=== PATIENT | male | born 1975 | race Caucasian/White ===

== ENCOUNTER 2019-07-19 19:36 | Emergency (ER) | payer MEDICAID ==
[~2019-07-19] VITALS: Ht 177.8 cm; Wt 90.9 kg
[2019-07-19] MEDS ORDERED: normal saline 1000ML IV soln IVB ONE (20:35)
[2019-07-19 21:16] LABS: ALANINE AMINOTRANSFERASE 185 U/L (12-78); ALBUMIN 4.2 G/DL (3.4-5.0); ALBUMIN/GLOBULIN RATIO 1.2 (1.1-1.5); ALKALINE PHOSPHATASE 97 IU/L (46-116); ANION GAP 9 (8-16); ASPARTATE AMINO TRANSFERASE 181 U/L (10-37); BILIRUBIN,TOTAL 0.6 MG/DL (0.1-1.0); BLOOD UREA NITROGEN 10 MG/DL (7-18); BUN/CREATININE RATIO 10.2 (5.4-32.0); CALCIUM 8.2 MG/DL (8.5-10.1); CHLORIDE 98 MMOL/L (99-107); CREATININE 0.98 MG/DL (0.60-1.10); ETHANOL 0.274 GM/DL (0.0-0.010); GLUCOSE 186 MG/DL (70-104); POTASSIUM 3.2 MMOL/L (3.5-5.1); SODIUM 137 MMOL/L (135-145); TOTAL CARBON DIOXIDE 29.9 MMOL/L (24-32); TOTAL PROTEIN 7.7 G/DL (6.4-8.2); eGFR 83 ML/MIN
[2019-07-19 21:29] LABS: BASOPHILS % (AUTO) 0.2 % (0-1); EOSINOPHILS % (AUTO) 0.3 % (0-6); HEMATOCRIT 44.2 % (42.0-52.0); HEMOGLOBIN 15.4 g/dl (14.0-17.9); LYMPHOCYTES # (AUTO) 0.5 X10'3 (1.1-4.8); MEAN CORPUSCULAR HEMOGLOBIN 34.2 PG (27.0-31.0); MEAN CORPUSCULAR HGB CONC 34.9 g/dL (33.0-36.5); MEAN CORPUSCULAR VOLUME 97.9 FL (78-98); MEAN PLATELET VOLUME 6.8 FL (7.4-10.4); MONOCYTES # (AUTO) 0.3 X10'3 (0-0.9); MONOCYTES % (AUTO) 8.5 % (2-12); NEUTROPHILS # (AUTO) 2.3 X10'3 (1.8-7.7); PLATELET COUNT 146 X10'3 (140-440); RED BLOOD COUNT 4.51 X10'6 (4.70-6.10); RED CELL DISTRIBUTION WIDTH 13.1 % (11.5-14.5); WHITE BLOOD COUNT 3.1 X10'3 (4.5-11.0)
[2019-07-19 22:16] VITALS: BP 155/104
== END 2019-07-19 22:19 | disposition home or self-care (01) ==
LOC: ER 19:37
DX: F10.129 Alcohol abuse with intoxication, unspecified (principal); F41.9 Anxiety disorder, unspecified; G47.9 Sleep disorder, unspecified; Z87.891 Personal history of nicotine dependence; Z59.0 Homelessness; Z79.899 Other long term (current) drug therapy; Y90.0 Blood alcohol level of less than 20 mg/100 ml
CPT/HCPCS: 36415; 80053; 80320; 84484; 85025; 93005; 99284; J7030

== ENCOUNTER 2019-07-22 04:28 | Inpatient (IN) | payer MEDICAID ==
[~2019-07-22] VITALS: Ht 177.8 cm; Wt 90.9 kg
[2019-07-22] MEDS ORDERED: dextrose 5%-1/2 normal saline 1,000 ML IV ONE (04:33)
[2019-07-22] MEDS ORDERED: thiamine inj. 100 MG in normal saline 100ml IV soln 100 ML IV ONE ×2 (04:35→06:25)
[2019-07-22] MEDS: LORazepam 2 mg/ml vial IV PRN ×8 (04:54→21:25)
[2019-07-22 05:09] LABS: BASOPHILS % (AUTO) 0.4 % (0-1); EOSINOPHILS % (AUTO) 0.3 % (0-6); HEMATOCRIT 44.2 % (42.0-52.0); HEMOGLOBIN 15.7 g/dl (14.0-17.9); LYMPHOCYTES # (AUTO) 0.7 X10'3 (1.1-4.8); LYMPHOCYTES % (AUTO) 16.4 % (21-51); MEAN CORPUSCULAR HEMOGLOBIN 34.6 PG (27.0-31.0); MEAN CORPUSCULAR HGB CONC 35.5 g/dL (33.0-36.5); MEAN CORPUSCULAR VOLUME 97.5 FL (78-98); MEAN PLATELET VOLUME 7.1 FL (7.4-10.4); MONOCYTES # (AUTO) 0.3 X10'3 (0-0.9); MONOCYTES % (AUTO) 7.7 % (2-12); NEUTROPHILS # (AUTO) 3.2 X10'3 (1.8-7.7); NEUTROPHILS % (AUTO) 75.2 % (42-75); PLATELET COUNT 126 X10'3 (140-440); RED BLOOD COUNT 4.53 X10'6 (4.70-6.10); RED CELL DISTRIBUTION WIDTH 12.8 % (11.5-14.5); WHITE BLOOD COUNT 4.2 X10'3 (4.5-11.0)
[2019-07-22] MEDS ORDERED: ondansetron/PF 4mg/2ml inj IV ONE (05:10)
[2019-07-22 05:20] LABS: ALANINE AMINOTRANSFERASE 262 U/L (12-78); ALBUMIN 4.5 G/DL (3.4-5.0); ALBUMIN/GLOBULIN RATIO 1.3 (1.1-1.5); ALKALINE PHOSPHATASE 103 IU/L (46-116); ANION GAP 16 (8-16); ASPARTATE AMINO TRANSFERASE 312 U/L (10-37); BILIRUBIN,TOTAL 0.7 MG/DL (0.1-1.0); BLOOD UREA NITROGEN 6 MG/DL (7-18); BUN/CREATININE RATIO 8.1 (5.4-32.0); CALCIUM 8.7 MG/DL (8.5-10.1); CHLORIDE 99 MMOL/L (99-107); CREATININE 0.74 MG/DL (0.60-1.10); GLUCOSE 98 MG/DL (70-104); POTASSIUM 3.2 MMOL/L (3.5-5.1); SODIUM 140 MMOL/L (135-145); TOTAL CARBON DIOXIDE 25.4 MMOL/L (24-32); TOTAL PROTEIN 7.9 G/DL (6.4-8.2); eGFR > 90 ML/MIN
[2019-07-22 05:31] LABS: MAGNESIUM 1.9 MG/DL (1.5-2.4); PHOSPHORUS 2.8 MG/DL (2.3-4.5)
[2019-07-22 05:38] LABS: ETHANOL 0.314 GM/DL (0.0-0.010)
[2019-07-22] MEDS ORDERED: NO HOME MEDS (06:05)
[2019-07-22] MEDS ORDERED: acetaminophen 325mg tablet PO PRN (06:20)
[2019-07-22] MEDS ORDERED: magnesium hydroxide 30ml (MOM) UD suspension PO PRN (06:20)
[2019-07-22] MEDS ORDERED: mag hydrox/Alum hydrox/simeth 30ml oral suspension PO PRN (06:20)
[2019-07-22] MEDS ORDERED: ondansetron/PF 4mg/2ml inj IV PRN (06:20)
[2019-07-22] MEDS ORDERED: LORazepam 2 mg/ml vial IV PRN (06:25)
--- NOTE | 2019-07-22 09:30 | NUR ---
Patient in room [facility] 354. I have received report from Loyda HEART on Surgical which received report from Rashmi HEART from ED and had the opportunity to ask questions and assume patient care.
[2019-07-22 09:43] LABS: CLARITY,URINE CLEAR (Clear); COLOR,URINE YELLOW (Yellow); GLUCOSE, URINE NEGATIVE (Neg); KETONES,URINE 15 mg/dl (Neg); LEUKOCYTE ESTERASE ,URINE NEGATIVE (Neg); NITRITES, URINE NEGATIVE (Neg); OCCULT BLOOD,URINE TRACE-INTACT (Neg); PH,URINE 6.5 (4.8-8.0); PROTEIN,URINE 30 mg/dl (Neg)
[2019-07-22] MEDS: gabapentin 100mg capsule PO SCH ×3 (09:44→21:25)
[2019-07-22] MEDS: folic acid 1mg tablet PO SCH (09:44)
[2019-07-22] MEDS: multivitamins, therapeutics tablet PO SCH (09:44)
[2019-07-22 09:47] LABS: UA COLLECTION TYPE URINAL
[2019-07-22 09:48] LABS: BACTERIA,URINE NONE SEEN /HPF (Neg); MUCUS STRANDS FEW /LPF (Neg); RBC,URINE 0-2 /HPF (0-2); SQUAMOUS EPITHELIAL CELL,UR NONE SEEN /LPF (FEW); WBC,URINE NONE SEEN /HPF (0-4)
[2019-07-22 09:54] LABS: URINE AMPHETAMINE SCREEN NEGATIVE (Neg); URINE BARBITUATE SCREEN NEGATIVE (Neg); URINE BENZODIAZEPINES SCREEN NEGATIVE (Neg); URINE CANNABINOID SCREEN NEGATIVE (Neg); URINE COCAINE SCREEN NEGATIVE (Neg); URINE METHADONE SCREEN NEGATIVE (Neg); URINE OPIATE SCREEN NEGATIVE (Neg); URINE PHENCYCLIDINE SCREEN NEGATIVE (Neg)
--- NOTE | 2019-07-22 10:15 | NUR ---
During hourly rounding pt had a small bottle of soil checker on the table that was almost completely empty. Pt was asked where this bottle came from and he stated it was in the care package from hospital. Pt asked if he had ingested the contents and he stated no. He insisted he used it to clean his body and hands. Pt's breath smelled like alcohol. Educated pt on alcohol abuse and ingesting soil checker. Pt was ashamed but would not admit to drinking it.
[2019-07-22 11:00] VITALS: BP 135/87
--- NOTE | 2019-07-22 11:30 | NUR ---
Pt Nauseated and vomited 100mls. Pt given zofran for N/V. Pt insisting he wants more Ativan so he can relax and sleep. States he has not slept in 4 days.
[2019-07-22] MEDS ORDERED: magnesium 4gm in 100ml NS 100 ML IV PRN (12:35)
[2019-07-22] MEDS: K and/or MAG REPLACEMENT MC SCH ×2 (12:35→20:00)
[2019-07-22] MEDS ORDERED: potassium CL 10mEq/100ml bag 100 ML IV PRN (12:35)
[2019-07-22] MEDS ORDERED: magnesium Cl slow-release 64mg tablet PO PRN (12:35)
[2019-07-22] MEDS ORDERED: potassium Cl 20 mEq SR tablet PO PRN (12:35)
[2019-07-22] MEDS: sucralfate 1 gm tablet PO SCH ×3 (12:49→21:25)
[2019-07-22] MEDS: nicotine 14mg patch - 24hr TD SCH (12:49)
[2019-07-22] MEDS: potassium Cl 20 mEq SR tablet PO PRN ×2 (14:15→21:25)
[2019-07-22] MEDS ORDERED: FLU VACC QS 2019-20 (6 MOS UP) 60 MCG/0.5 ML VIAL IMVAC ONE (17:30)
[2019-07-22 18:00] VITALS: BP 138/88
--- NOTE | 2019-07-22 18:00 | NUR ---
Patient in room [facility] 354. I have received report from Cassie HEART and had the opportunity to ask questions and assume patient care.
--- NOTE | 2019-07-22 18:46 | NUR ---
Problems reprioritized. Patient report given, questions answered & plan of care reviewed with Prudence RN.
[2019-07-23 00:35] VITALS: BP 138/95
[2019-07-23] MEDS: LORazepam 2 mg/ml vial IV PRN ×7 (02:08→23:13)
[2019-07-23 05:16] LABS: BASOPHILS % (AUTO) 0.2 % (0-1); EOSINOPHILS % (AUTO) 1.1 % (0-6); HEMATOCRIT 38.4 % (42.0-52.0); HEMOGLOBIN 13.6 g/dl (14.0-17.9); LYMPHOCYTES # (AUTO) 0.4 X10'3 (1.1-4.8); LYMPHOCYTES % (AUTO) 12.6 % (21-51); MEAN CORPUSCULAR HEMOGLOBIN 34.5 PG (27.0-31.0); MEAN CORPUSCULAR HGB CONC 35.3 g/dL (33.0-36.5); MEAN CORPUSCULAR VOLUME 97.7 FL (78-98); MONOCYTES # (AUTO) 0.3 X10'3 (0-0.9); MONOCYTES % (AUTO) 8.6 % (2-12); NEUTROPHILS # (AUTO) 2.6 X10'3 (1.8-7.7); NEUTROPHILS % (AUTO) 77.5 % (42-75); PLATELET COUNT 84 X10'3 (140-440); RED BLOOD COUNT 3.93 X10'6 (4.70-6.10); RED CELL DISTRIBUTION WIDTH 12.7 % (11.5-14.5); WHITE BLOOD COUNT 3.4 X10'3 (4.5-11.0)
[2019-07-23 05:45] LABS: ALANINE AMINOTRANSFERASE 208 U/L (12-78); ALBUMIN 3.7 G/DL (3.4-5.0); ALBUMIN/GLOBULIN RATIO 1.2 (1.1-1.5); ALKALINE PHOSPHATASE 87 IU/L (46-116); ANION GAP 7 (8-16); ASPARTATE AMINO TRANSFERASE 198 U/L (10-37); BLOOD UREA NITROGEN 6 MG/DL (7-18); BUN/CREATININE RATIO 7.5 (5.4-32.0); CALCIUM 8.7 MG/DL (8.5-10.1); CHLORIDE 100 MMOL/L (99-107); GLUCOSE 85 MG/DL (70-104); POTASSIUM 3.7 MMOL/L (3.5-5.1); SODIUM 138 MMOL/L (135-145); TOTAL CARBON DIOXIDE 31.2 MMOL/L (24-32); TOTAL PROTEIN 6.8 G/DL (6.4-8.2); eGFR > 90 ML/MIN
--- NOTE | 2019-07-23 06:19 | NUR ---
Problems reprioritized. Patient report given, questions answered & plan of care reviewed with Cassie HEART.
--- NOTE | 2019-07-23 06:36 | NUR ---
Patient in room [facility] 354. I have received report from Sarina HEART and had the opportunity to ask questions and assume patient care.
[2019-07-23 07:00] VITALS: BP 167/106
[2019-07-23] MEDS: multivitamins, therapeutics tablet PO SCH (07:31)
[2019-07-23] MEDS: sucralfate 1 gm tablet PO SCH ×4 (07:31→20:28)
[2019-07-23] MEDS: folic acid 1mg tablet PO SCH (07:32)
[2019-07-23] MEDS: gabapentin 100mg capsule PO SCH ×3 (07:32→20:28)
[2019-07-23] MEDS: nicotine 14mg patch - 24hr TD SCH (07:33)
[2019-07-23] MEDS: K and/or MAG REPLACEMENT MC SCH ×2 (07:42→20:00)
--- NOTE | 2019-07-23 18:10 | NUR ---
Received report from UNA Matthews. Patient is awake and alert on room air, in no apparent distress. Call light and items of frequent use within reach. Will continue to monitor.
--- NOTE | 2019-07-23 18:28 | NUR ---
Problems reprioritized. Patient report given, questions answered & plan of care reviewed with Kerrie HEART.
[2019-07-23 20:00] VITALS: BP 153/108
[2019-07-24] VITALS: BP 146/108
[2019-07-24] MEDS: LORazepam 2 mg/ml vial IV PRN ×7 (05:19→21:44)
[2019-07-24 05:33] LABS: BASOPHILS % (AUTO) 0.3 % (0-1); EOSINOPHILS # (AUTO) 0.1 X10'3 (0-0.9); EOSINOPHILS % (AUTO) 2.9 % (0-6); HEMATOCRIT 41.9 % (42.0-52.0); HEMOGLOBIN 14.7 g/dl (14.0-17.9); LYMPHOCYTES # (AUTO) 0.6 X10'3 (1.1-4.8); LYMPHOCYTES % (AUTO) 17.4 % (21-51); MEAN CORPUSCULAR HEMOGLOBIN 34.5 PG (27.0-31.0); MEAN CORPUSCULAR HGB CONC 35.2 g/dL (33.0-36.5); MONOCYTES # (AUTO) 0.4 X10'3 (0-0.9); MONOCYTES % (AUTO) 10.9 % (2-12); NEUTROPHILS # (AUTO) 2.4 X10'3 (1.8-7.7); NEUTROPHILS % (AUTO) 68.5 % (42-75); PLATELET COUNT 85 X10'3 (140-440); RED BLOOD COUNT 4.27 X10'6 (4.70-6.10); WHITE BLOOD COUNT 3.5 X10'3 (4.5-11.0)
[2019-07-24 06:07] LABS: ALANINE AMINOTRANSFERASE 192 U/L (12-78); ALBUMIN 3.9 G/DL (3.4-5.0); ALBUMIN/GLOBULIN RATIO 1.1 (1.1-1.5); ALKALINE PHOSPHATASE 93 IU/L (46-116); ANION GAP 11 (8-16); ASPARTATE AMINO TRANSFERASE 162 U/L (10-37); BILIRUBIN,TOTAL 1.1 MG/DL (0.1-1.0); BLOOD UREA NITROGEN 6 MG/DL (7-18); BUN/CREATININE RATIO 8.2 (5.4-32.0); CALCIUM 9.3 MG/DL (8.5-10.1); CHLORIDE 99 MMOL/L (99-107); CREATININE 0.73 MG/DL (0.60-1.10); GLUCOSE 96 MG/DL (70-104); POTASSIUM 3.4 MMOL/L (3.5-5.1); SODIUM 139 MMOL/L (135-145); TOTAL CARBON DIOXIDE 29.2 MMOL/L (24-32); TOTAL PROTEIN 7.5 G/DL (6.4-8.2); eGFR > 90 ML/MIN
--- NOTE | 2019-07-24 06:19 | NUR ---
Problems reprioritized. Patient report given, questions answered & plan of care reviewed with UNA Skinner.
[2019-07-24] MEDS ORDERED: LORazepam 2 mg/ml vial IV PRN (06:25)
--- NOTE | 2019-07-24 06:30 | NUR ---
Patient in room [facility] 354. I have received report from Kerrie HEART and had the opportunity to ask questions and assume patient care.
--- NOTE | 2019-07-24 06:30 | NUR ---
Patient in room [facility] 354. I have received report from Henry HEART and had the opportunity to ask questions and assume patient care.
[2019-07-24 07:11] VITALS: BP 148/110
[2019-07-24 07:21] VITALS: BP 159/107
[2019-07-24] MEDS: K and/or MAG REPLACEMENT MC SCH ×2 (08:00→18:59)
[2019-07-24] MEDS: multivitamins, therapeutics tablet PO SCH (08:03)
[2019-07-24] MEDS: sucralfate 1 gm tablet PO SCH ×4 (08:03→21:44)
[2019-07-24] MEDS: folic acid 1mg tablet PO SCH (08:03)
[2019-07-24] MEDS: gabapentin 100mg capsule PO SCH ×3 (08:04→21:44)
[2019-07-24] MEDS: nicotine 14mg patch - 24hr TD SCH (08:06)
[2019-07-24] MEDS: cloNIDine 0.1 mg tablet PO SCH ×2 (08:21→18:51)
[2019-07-24] MEDS: potassium Cl 20 mEq SR tablet PO PRN (08:21)
[2019-07-24 11:00] VITALS: BP 163/118
--- NOTE | 2019-07-24 14:05 | NUR ---
Patient was found at the elevators with significant other. When asked where they were headed the patient stated "outside for some air". Patient was educted on the policy here at the hospital and that unfortunately we can not have the patient going outside due to the risk of injury or compromise of safety. Patient and partner stated that they understand. Patient asked if there was a waiver or something that he can sign in order to be allowed to smoke a cigarette. Patient was informed that the only form like that would be an AMA but that would require him to leave against medical advice. Patient stated that he didn't want to leave AMA. Patient stated, "I'm just dying for a cigarette". Patient was told that we can attempt to get an increased dose of his nicotine patch by discussing this with the MD. MD paged with the following: PAGER ID: [phone] MESSAGE: UNA Skinner [phone] Vivek Lucero Patient was trying to go smoke a cigarette. Nicotine patch of 14 mg isn't helping can we increase to 21 mg? Thank you
[2019-07-24] MEDS: nicotine 21mg patch - 24 hr TD SCH (15:34)
--- NOTE | 2019-07-24 18:31 | NUR ---
Problems reprioritized. Patient report given, questions answered & plan of care reviewed with John HEART.
[2019-07-24 19:00] VITALS: BP 137/104
[2019-07-25] MEDS: LORazepam 2 mg/ml vial IV PRN (03:35)
[2019-07-25 05:41] LABS: BASOPHILS % (AUTO) 0.4 % (0-1); EOSINOPHILS # (AUTO) 0.1 X10'3 (0-0.9); EOSINOPHILS % (AUTO) 3.1 % (0-6); HEMATOCRIT 39.1 % (42.0-52.0); LYMPHOCYTES # (AUTO) 0.5 X10'3 (1.1-4.8); LYMPHOCYTES % (AUTO) 13.7 % (21-51); MEAN CORPUSCULAR HEMOGLOBIN 35.2 PG (27.0-31.0); MEAN CORPUSCULAR HGB CONC 35.7 g/dL (33.0-36.5); MEAN CORPUSCULAR VOLUME 98.7 FL (78-98); MEAN PLATELET VOLUME 7.9 FL (7.4-10.4); MONOCYTES # (AUTO) 0.4 X10'3 (0-0.9); MONOCYTES % (AUTO) 10.9 % (2-12); NEUTROPHILS # (AUTO) 2.7 X10'3 (1.8-7.7); NEUTROPHILS % (AUTO) 71.9 % (42-75); PLATELET COUNT 92 X10'3 (140-440); RED BLOOD COUNT 3.96 X10'6 (4.70-6.10); RED CELL DISTRIBUTION WIDTH 13.2 % (11.5-14.5); WHITE BLOOD COUNT 3.7 X10'3 (4.5-11.0)
[2019-07-25 05:59] LABS: ALANINE AMINOTRANSFERASE 273 U/L (12-78); ALBUMIN 3.8 G/DL (3.4-5.0); ALBUMIN/GLOBULIN RATIO 1.2 (1.1-1.5); ALKALINE PHOSPHATASE 88 IU/L (46-116); ANION GAP 6 (8-16); ASPARTATE AMINO TRANSFERASE 279 U/L (10-37); BLOOD UREA NITROGEN 5 MG/DL (7-18); BUN/CREATININE RATIO 6.3 (5.4-32.0); CALCIUM 9.1 MG/DL (8.5-10.1); CHLORIDE 104 MMOL/L (99-107); CREATININE 0.79 MG/DL (0.60-1.10); GLUCOSE 98 MG/DL (70-104); SODIUM 138 MMOL/L (135-145); TOTAL CARBON DIOXIDE 28.2 MMOL/L (24-32); TOTAL PROTEIN 7.1 G/DL (6.4-8.2); eGFR > 90 ML/MIN
--- NOTE | 2019-07-25 06:37 | NUR ---
Problems reprioritized. Patient report given, questions answered & plan of care reviewed with ELLIE. Addendum: 07/25/19 at 0638 by Scott Chi RN Amended: Links added.
--- NOTE | 2019-07-25 06:54 | NUR ---
Patient in room [facility] 354. I have received report from John HEART and had the opportunity to ask questions and assume patient care.
[2019-07-25] MEDS: sucralfate 1 gm tablet PO SCH ×3 (07:33→12:44)
[2019-07-25] MEDS: LORazepam 1 MG tablet PO PRN ×2 (07:33→12:44)
[2019-07-25] MEDS: gabapentin 100mg capsule PO SCH ×2 (07:34→12:44)
[2019-07-25] MEDS: cloNIDine 0.1 mg tablet PO SCH (07:34)
[2019-07-25] MEDS: multivitamins, therapeutics tablet PO SCH (07:34)
[2019-07-25] MEDS: folic acid 1mg tablet PO SCH (07:35)
[2019-07-25] MEDS: nicotine 21mg patch - 24 hr TD SCH (07:37)
[2019-07-25 07:46] LABS: GIANT PLATELET FEW; LARGE PLATELETS FEW; PLATELET ESTIMATE DECREASED
[2019-07-25 08:00] VITALS: BP 145/108
[2019-07-25] MEDS: K and/or MAG REPLACEMENT MC SCH (08:00)
[2019-07-25] MEDS ORDERED: CLON0.1T2 PO (11:45)
[2019-07-25] MEDS ORDERED: GABA-532 PO (11:45)
[2019-07-25 12:59] VITALS: BP 136/97
--- NOTE | 2019-07-25 13:49 | NUR ---
Patient discharged into his own care. Patient IV was taken out a this time. Patient site showed minimal bleeding and canula was whole and intact upon discharge. Patient discharge was done verbally and patient expressed understanding of discharge teaching and new medication regime. Patient taken to lobby and taxi service provided to pickup driver medications then to drop off at [facility].
[2019-07-26] MEDS ORDERED: LORazepam 1 MG tablet PO PRN (06:25)
== END 2019-07-25 13:51 | disposition home or self-care (01) | DRG 280 ==
LOC: ER 04:28 → ED HOLD 06:20 → SUR 3N 09:40
PROVIDERS: ADMIT Internal Medicine; ATTEND Internal Medicine
DX: K70.10 Alcoholic hepatitis without ascites (principal); D69.6 Thrombocytopenia, unspecified; E87.6 Hypokalemia; F10.10 Alcohol abuse, uncomplicated; K21.9 Gastro-esophageal reflux disease without esophagitis; Y90.9 Presence of alcohol in blood, level not specified; D72.819 Decreased white blood cell count, unspecified; Y90.8 Blood alcohol level of 240 mg/100 ml or more; R74.0 Nonspecific elevation of levels of transaminase and lactic acid dehydrogenase [LDH]; Z87.891 Personal history of nicotine dependence; Z23 Encounter for immunization; Z79.899 Other long term (current) drug therapy; Z59.0 Homelessness
CPT/HCPCS: 36415; 80053; 80305; 80320; 81001; 82948; 83735; 84100; 85025; 87081; 96361; 96365; 96375; 99285; G0378; J2060; J2405; J3411; Q2037

== ENCOUNTER 2022-03-22 07:50 | Emergency (ER) | payer MEDICAID ==
[~2022-03-22] VITALS: Ht 180.3 cm; Wt 110.0 kg
[~2022-03-22 07:50] MED LIST: CLON0.1T2 PO; GABA-532 PO
[2022-03-22] MEDS ORDERED: normal saline 1000ml 1,000 ML IV ONE (08:20)
[2022-03-22] MEDS ORDERED: LORazepam 2 mg/ml vial IV ONE (08:20)
[2022-03-22 08:40] LABS: BASOPHILS % (AUTO) 0.3 % (0-1); EOSINOPHILS % (AUTO) 0.1 % (0-6); HEMATOCRIT 36.2 % (42.0-52.0); HEMOGLOBIN 12.9 g/dl (14.0-17.9); LYMPHOCYTES # (AUTO) 0.7 X10'3 (1.1-4.8); LYMPHOCYTES % (AUTO) 8.4 % (21-51); MEAN CORPUSCULAR HEMOGLOBIN 33.3 PG (27.0-31.0); MEAN CORPUSCULAR HGB CONC 35.7 g/dL (33.0-36.5); MEAN CORPUSCULAR VOLUME 93.3 FL (78-98); MEAN PLATELET VOLUME 7.3 FL (7.4-10.4); MONOCYTES # (AUTO) 0.7 X10'3 (0-0.9); MONOCYTES % (AUTO) 8.3 % (2-12); NEUTROPHILS # (AUTO) 6.9 X10'3 (1.8-7.7); NEUTROPHILS % (AUTO) 82.9 % (42-75); PLATELET COUNT 184 X10'3 (140-440); RED BLOOD COUNT 3.88 X10'6 (4.70-6.10); RED CELL DISTRIBUTION WIDTH 13.7 % (11.5-14.5); WHITE BLOOD COUNT 8.3 X10'3 (4.5-11.0)
[2022-03-22 08:58] LABS: ALANINE AMINOTRANSFERASE 55 U/L (12-78); ALBUMIN 4.1 G/DL (3.4-5.0); ALBUMIN/GLOBULIN RATIO 1.2 (1.1-1.5); ALKALINE PHOSPHATASE 83 IU/L (46-116); ANION GAP 9 (8-16); ASPARTATE AMINO TRANSFERASE 41 U/L (10-37); BILIRUBIN,TOTAL 0.7 MG/DL (0.1-1.0); BLOOD UREA NITROGEN 11 MG/DL (7-18); CALCIUM 9.5 MG/DL (8.5-10.1); CHLORIDE 102 MMOL/L (99-107); GLUCOSE 117 MG/DL (70-104); SODIUM 140 MMOL/L (135-145); TOTAL CARBON DIOXIDE 28.6 MMOL/L (24-32); TOTAL PROTEIN 7.5 G/DL (6.4-8.2); eGFR 80 ML/MIN
[2022-03-22 09:01] LABS: POTASSIUM 2.7 MMOL/L (3.5-5.1)
[2022-03-22 09:03] LABS: ETHANOL < 0.010 GM/DL (0.0-0.010)
[2022-03-22] MEDS ORDERED: potassium CL 10mEq/100ml bag 100 ML IV ONE (09:10)
[2022-03-22] MEDS ORDERED: magnesium 2GM in 50ml NS 50 ML IV ONE (09:10)
[2022-03-22] MEDS: POTASSIUM BICARB 20meq eff tab 20 MEQ TABLET.EFF PO PRN ×2 (09:30→16:02)
--- NOTE | 2022-03-22 09:36 | NUR ---
PLACED ON 5150 BY JONNA. COPPERATIVE AT THIS TIME. ADVISED OF WAIT TIME TO SEE MENTAL HEALTH WORKER.
[2022-03-22 09:46] LABS: CLARITY,URINE CLEAR (Clear); COLOR,URINE YELLOW (Yellow); GLUCOSE, URINE NEGATIVE (Neg); KETONES,URINE NEGATIVE (Neg); LEUKOCYTE ESTERASE ,URINE NEGATIVE (Neg); NITRITES, URINE NEGATIVE (Neg); OCCULT BLOOD,URINE TRACE-INTACT (Neg); PROTEIN,URINE NEGATIVE (Neg); UROBILINOGEN,URINE 0.2 E.U/dL (0.2-1.0)
[2022-03-22 09:50] LABS: UA COLLECTION TYPE CLN CATCH MIDSTREAM
[2022-03-22 09:51] LABS: BACTERIA,URINE NONE SEEN /HPF (Neg); MUCUS STRANDS NONE SEEN /LPF (Neg); SQUAMOUS EPITHELIAL CELL,UR NONE SEEN /LPF (FEW); WBC,URINE NONE SEEN /HPF (0-4)
[2022-03-22 09:58] LABS: URINE AMPHETAMINE SCREEN NEGATIVE (Neg); URINE BARBITUATE SCREEN NEGATIVE (Neg); URINE BENZODIAZEPINES SCREEN NEGATIVE (Neg); URINE CANNABINOID SCREEN POSITIVE (Neg); URINE COCAINE SCREEN NEGATIVE (Neg); URINE METHADONE SCREEN NEGATIVE (Neg); URINE OPIATE SCREEN NEGATIVE (Neg); URINE PHENCYCLIDINE SCREEN NEGATIVE (Neg)
[2022-03-22] MEDS ORDERED: potassium Cl 20 mEq SR tablet PO STA (10:24)
[2022-03-22] MEDS ORDERED: haloperidol lactate 5mg/ml inj IM ONE (11:45)
[2022-03-22 11:58] LABS: ALBUMIN 4.2 G/DL (3.4-5.0); ANION GAP 11 (8-16); BLOOD UREA NITROGEN 11 MG/DL (7-18); BUN/CREATININE RATIO 10.6 (5.4-32.0); CALCIUM 9.7 MG/DL (8.5-10.1); CHLORIDE 101 MMOL/L (99-107); CREATININE 1.04 MG/DL (0.60-1.10); GLUCOSE 119 MG/DL (70-104); SODIUM 140 MMOL/L (135-145); TOTAL CARBON DIOXIDE 27.8 MMOL/L (24-32); eGFR 77 ML/MIN
[2022-03-22 12:00] LABS: POTASSIUM 2.8 MMOL/L (3.5-5.1)
[2022-03-22] MEDS ORDERED: potassium CL 10mEq/100ml bag 100 ML IV PRN (12:10)
[2022-03-22] MEDS ORDERED: POTASSIUM BICARB 20meq eff tab 20 MEQ TABLET.EFF PO PRN (12:30)
--- NOTE | 2022-03-22 12:35 | NUR ---
Received patient from main ED. Pt independently ambulated to OF bed #26. Pt was escorted w/security as pt was slightly agitated in main ED. Pt was changed into green, belongings list completed. Pt states "I'm not sure why I'm here." "It think it was because I was feeling whoozey." When asked about his , as pt told LE that his " was murdered last night." Pt stated "nah, I just found out she is cheating on me." Per report from previous nurse this person is an ex-fiance, not ." A well check was sent to [employer] and she was fine (per Larry, RN previous nurse.) Pt presents with a constricted affect, a little tense. Pt denies all psychotic symptoms. Pt was hungry and a turkey sandwich was given, late larissa requeste faxed to dietary. Addendum: 03/22/22 at 1249 by VIVIEN Ex-fiance (girlfriend) name is Reanna mclaughlin [phone] from [facility].
--- NOTE | 2022-03-22 13:27 | NUR ---
Pt resting comfortably, snoring sounds heard. No distress noted.
--- NOTE | 2022-03-22 13:40 | NUR ---
Pt was sitting on his bed talking, when asked if he needed anything pt laughed and said "that juan josé over there with the rocks he could use a chisel." Pt also said something about a machine, but database report writer couldn't make out what he was saying.
--- NOTE | 2022-03-22 14:12 | NUR ---
[facility] clinician at bedside for MH assessment.
--- NOTE | 2022-03-22 14:17 | NUR ---
5150 is being upheld. Pt was appropriate during conversation, no insight into MH. Pt fell back to sleep after clinician left bedside.
--- NOTE | 2022-03-22 15:43 | NUR ---
Pt is on potassium protocol. Pt's third dose is at 1600, lab draw will be at 1900. Clarified change with Dr. Mcpherson as lab draw was scheduled for 1620.
--- NOTE | 2022-03-22 16:00 | NUR ---
Third dose of potassium 40 meqs administered.
--- NOTE | 2022-03-22 16:04 | NUR ---
Pt asked property underwriter why he is here. [employer] Let Off Helper attempted to explain he was on a 5150 hold. Pt has no insight into his MH, even after [facility] Paulo came and talked to him again.
--- NOTE | 2022-03-22 16:56 | NUR ---
Pt is clearing up. Pt is A&Ox4. Pt is more lucid. Pt was worried about where his car park and having to notify his training systems officer. Pt was given a phone so he could arrange his car to be picked up, he also spoke with probation office. Pt's friend Graciela Art came and picked up car hernandez per pt authorization. Per PANCHO Bates, he will reevaluate pt tomorrow. Pt is a little stressed that he is here, however has been calm.
--- NOTE | 2022-03-22 17:09 | NUR ---
Pt brought in his home medication hydroxyzine 25 mg PRN for anxiety. Pt states this helps him sleep. Pt takes 50 mg as need. Spoke with Dr. Graciela Mcpherson - she authorized Atarax 50mg at HS PRN. Pt is calm, but is a little anxious r/t his situation. HOME MED TO PHARMACY.
--- NOTE | 2022-03-22 17:52 | NUR ---
Pt's current BP was 142/100, during EMS transport 180/140, in ED 159/108. Readings were presented to Dr. Mcpherson. Per pt med hx ([employer]), pts baseline are within these perimeters. No additional intervention needed. Pt is non compliant with prescribed Inderal 40mg and Losartan 25mg.
[2022-03-22] MEDS ORDERED: hydrOXYzine 25 MG tablet PO PRN (18:00)
[2022-03-22 18:37] LABS: ALBUMIN 3.6 G/DL (3.4-5.0); ANION GAP 7 (8-16); BLOOD UREA NITROGEN 11 MG/DL (7-18); BUN/CREATININE RATIO 11.7 (5.4-32.0); CALCIUM 9.1 MG/DL (8.5-10.1); CHLORIDE 104 MMOL/L (99-107); CREATININE 0.94 MG/DL (0.60-1.10); GLUCOSE 93 MG/DL (70-104); POTASSIUM 3.6 MMOL/L (3.5-5.1); SODIUM 141 MMOL/L (135-145); TOTAL CARBON DIOXIDE 29.7 MMOL/L (24-32); eGFR 86 ML/MIN
--- NOTE | 2022-03-22 19:00 | NUR ---
One to one with the patient who is calm and pleasant. He denies that he is experiencing auditory or visual hallucinations. Discussed plan of care with the patient and medications.
--- NOTE | 2022-03-22 19:54 | NUR ---
The patient appears to be sleeping
--- NOTE | 2022-03-22 20:41 | NUR ---
The patient appears to be sleeping
--- NOTE | 2022-03-22 23:04 | NUR ---
The patient has been awake. PRN medication given. He is pleasant but occassionally can be heard whispering to himself. He was up briefly to use the bathroom and is now back in bed and trying to go back to sleep
--- NOTE | 2022-03-23 00:02 | NUR ---
The patient appears to be sleeping
--- NOTE | 2022-03-23 01:15 | NUR ---
The patient appears to be sleeping
--- NOTE | 2022-03-23 02:03 | NUR ---
The patient appears to be sleeping
--- NOTE | 2022-03-23 03:24 | NUR ---
The patient appears to be sleeping
--- NOTE | 2022-03-23 05:01 | NUR ---
The patient appeared to have slept well during the night. He is currently awake and up to use the bathroom.
[2022-03-23 05:10] VITALS: BP_DIAS 102
--- NOTE | 2022-03-23 06:26 | NUR ---
Patient sleeping onhis right side. No distress observed. Continue to monitor.
--- NOTE | 2022-03-23 07:49 | NUR ---
Patient sitting up in bed and eating breakfast. No distress observed. Continue to monitor.
--- NOTE | 2022-03-23 09:32 | NUR ---
Patient sleeping. No distress observed. Continue to monitor.
[2022-03-23] MEDS ORDERED: NALT50TA PO (10:31)
[2022-03-23] MEDS ORDERED: PROP40TA72 PO (10:31)
[2022-03-23] MEDS ORDERED: LOSA25TA41 PO (10:31)
[2022-03-23] MEDS ORDERED: losartan 25mg tablet PO SCH (10:54)
[2022-03-23] MEDS ORDERED: naltrexone 50mg tablet PO SCH (10:55)
[2022-03-23] MEDS ORDERED: propranolol 40mg tablet PO SCH (10:56)
[2022-03-23 11:16] VITALS: BP_SYST 140
--- NOTE | 2022-03-23 11:19 | NUR ---
Patient attempting to make a phone call. No distress observed. Continue to monitor.
--- NOTE | 2022-03-23 12:14 | NUR ---
Patient eating lunch. No distress observed Continue to monitor.
== END 2022-03-23 13:35 ==
LOC: ER 07:50
DX: F22 Delusional disorders (principal); Z20.822 Contact with and (suspected) exposure to COVID-19; E87.6 Hypokalemia; E86.0 Dehydration; F41.9 Anxiety disorder, unspecified; F17.200 Nicotine dependence, unspecified, uncomplicated; I10 Essential (primary) hypertension; Z79.899 Other long term (current) drug therapy
CPT/HCPCS: 36415; 80048; 80053; 80305; 80320; 81001; 84443; 85025; 87811; 96361; 96365; 96367; 96372; 96375; 99285; J1630; J2060; J3475; J3480; J7030; Q0177; 93005